=== PATIENT | male | born 1990 | race African-American/Black ===

== ENCOUNTER 2019-07-28 22:04 | Emergency (ER) | payer SELFPAY ==
[~2019-07-28] VITALS: Ht 182.9 cm; Wt 77.0 kg
[2019-07-28 22:33] VITALS: BP 122/86
== END 2019-07-29 02:20 | disposition left against medical advice (07) ==
LOC: ER 22:04
DX: Z53.21 Procedure and treatment not carried out due to patient leaving prior to being seen by health care provider (principal)